=== PATIENT | male | born 2000 | race Caucasian/White ===

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

== ENCOUNTER 2024-11-22 10:05 | Day surgery (SDC) | payer OTHER, SELFPAY ==
[2024-11-22] VITALS (10 sets, daily range): BP systolic 109–118; BP diastolic 68–76; PULSE 62–87; RESP 16; TEMP 36.1–36.6; O2SAT 92–100; BMI 38.5
[2024-11-22] MEDS: Lactated Ringers 1,000 ML 15 ML IV (11:23)
--- NOTE | 2024-11-22 11:33 | PRE.ANES_ITS ---
ASA Classification* ASA Classification ASA Classification: 2 Assessment & Plan Anesthesia* Anesthesia Assessment Anesthesia Assessment: Discussed sedation and/or anesthesia options, risks, benefits, and alternatives with patient/parents/legal guardian/POA. Questions invited. The patient/parents/legal guardian/POA seems to understand and agrees to proceed with anesthesia plan. Reviewed the physical assessment, medical history, allergy history and patient home medications list prior to surgery/procedure/anesthetic and documented any changes. Performed airway and anesthesia risk assessments. 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 When Was Last Pacemaker Check QUESTION #4 FULL TEXT: You/Your Family Experience fever (hyperthermia) with Anesthesia Last Oral Intake Last Oral intake: Last Oral Intake NPO since 09:15 11/22/24 10:55 Meds taken in AM with sips of water? 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 Female No 10/31/24 15:22 HX of Motion Sickness No 10/31/24 15:22 HX of N/V After Surgery No 10/31/24 15:22 Non-Smoker Yes 10/31/24 15:22 Duration of Surgery greater Yes 10/31/24 15:22 than 60 minutes Number of Risk Factors 2 10/31/24 15:22 PONV Score Moderate Risk 10/31/24 15:22 Height & Weight Height & Weight: Anesthesia: Height & Weight Height 6 ft 11/22/24 10:55 Weight: 129 kg 11/22/24 10:55 Body Mass Index (BMI) 38.5 11/22/24 10:55 Respiratory Assessment Respiratory Assessment - corn detasseler machine operator: Respiratory Tract Infection Hx - corn detasseler machine operator Hx Respiratory Tract Infection No 10/31/24 15:22 STOP Sleep Apnea STOP Sleep Apnea - corn detasseler machine operator: STOP Sleep Apnea - corn detasseler machine operator Hx Hypertension No 10/31/24 15:22 Hx Sleep Apnea No 10/31/24 15:22 CPAP No 04/14/17 16:06 BIPAP Do you snore loudly (louder No 10/31/24 15:22 than talking or can be heard Do you often feel tired/ No 10/31/24 15:22 fatigued/ sleepy during daytime? Has anyone observed you stop No 10/31/24 15:22 breathing during sleep? STOP Results Negative 10/31/24 15:22 QUESTION #5 FULL TEXT : Do you snore loudly (louder than talking or can be heard through closed doors)? 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 Specify any problems Hx of Preganancy in last 3 N/A 10/31/24 15:22 Months Nurse Filling Out Transfusion DSCHRIBER 10/31/24 15:22 & Questions: Date: 10/31/24 10/31/24 15:22 Time: 15:23 10/31/24 15:22 Patient unable to answer at this time (ie. confused, unrespo /Reproduction History /Reproductive History - corn detasseler machine operator: /Reproductive Hx- corn detasseler machine operator Hx Now No 10/31/24 15:22 Gestational Age (in weeks): EDC: Hx Hx Para Hx Section SAB No 10/31/24 15:22 Active Medications Active Medications: Current Medications Generic Name Dose Route Start Last Admin Trade Name Freq PRN Reason Stop Dose Admin Cefazolin Sodium 3 gm/ Sodium 115 mls @ 200 mls/hr 11/22/24 11:45 Chloride IV 11/22/24 12:19 INTRAOP ONE Lactated Ringer's 1,000 mls @ 15 mls/hr 11/22/24 10:30 11/22/24 11:23 IV 15 mls/hr .Q48H LYNN Administration PFSH Medical History Thyroid disease Arthritis Back pain Non-smoker Home Medications ?Medication ?Instructions ?Recorded ?Last Taken ?Type levothyroxine 25 mcg capsule 25 mcg PO DAILY 10/31/24 11/22/24 History methocarbamol 500 mg tablet 500 mg PO Q8H PRN pain Unknown History naproxen 500 mg tablet 500 mg PO DAILY PRN pain Unknown History Allergy/AdvReac Type Severity Reaction Status Date / Time Acrylic Acid and Acrylates Allergy Rash Verified 11/22/24 10:54 (steri-strips (acrylate)) adhesive tape Allergy Rash Verified 11/22/24 10:54 Family History Mother Connective tissue disease Surgical History Hx of knee surgery S/P ACL reconstruction Social History Smoking Status: Never smoker alcohol intake: never Review of Systems (Anesthesia) ROS Narrative System reviewed and no additional complaints, except as documented.
[2024-11-22] MEDS: Midazolam 2 MG/2 ML Syringe IV (11:36)
[2024-11-22] MEDS: Cefazolin 1 GM/5 ML Vial 3 GM IV (12:06)
--- OUTSIDE RECORDS SUMMARY | 2024-11-22 12:16 | XMS RPT_ITS | CCD ---
Author Organization [facility] Inform ion Partnership [facility] Care Team Providers Care Hand Marker Name Role Phone Allyson Navarro Lux Unavailable Tito Knott Unavailable Bhavesh Becerra Attending Unavailable Hanna Owens Primary Care Unavailable Allergies Allergy Classification Reported Allergen(s) Allergy Type Date of Onset Reaction(s) Facility (2 sources) Adhesive bandage drug allergy 01-18-2017 [facility] Work Phone: (1 source) Adhesive Tape Drug allergy (disorder) 10-31-[address] [facility] Repository Medications Completed/Discontinued Medications Medication Drug Class(es) Dates Sig (Normalized) Sig (Original) doxycycline monohydrate 100 mg oral capsule (2 sources) Tetracycline-clas s Drug Start: 01-26-2017 DOXYCYCLINE MONOHYDRATE 100 MG CAPS 1 capsule twice a day DOXYCYCLINE MONOHYDRATE [id number] Abhijit PADILLA Problems Active Problems Problem Classification Problem Date Documented Da te Episodic/Chronic Joint disorders and dislocations; trauma-related (2 sources) Derangement of knee; Translations: [Other internal derangements of left knee] Onset: 01-12-2017 01-13-2017 Chronic Unclassified (2 sources) Aftercare ; Translations: [Encounter for other orthopedic aftercare] Onset: 02-14-2017 02-14-2017 Past or Other Problems Problem Classification Problem Date Documented Da te Episodic/Chronic Other non-traumatic joint disorders (2 sources) Knee pain; Translations: [Pain in left knee] Onset: 12-27-2016 12-27-2016 Episodic Skin and subcutaneous tissue infections (2 sources) Impetigo; Translations: [Impetigo, unspecified] Onset: 01-26-2017 01-26-2017 Episodic Sprains and strains (8 sources) Sprain of medial collateral ligament of left knee, subsequent encounter; Translations: [Sprain of anterior cruciate ligament of left knee, subsequent encounter] Onset: 12-27-2016 01-13-2017 Episodic Results Test Name Value Interpretation Reference Range Facility [facility] 07-12-2017 [facility], [address] [address]Xiipm: [phone]: [phone] 2017RE: [id number] [place] [id number]/08/1999Dear Parent/Guardian of Payam,We have tried to contact you in regards to your child'Maicol for Routine PhysicalOur efforts to reach you have been unsuccessful. Please call [phone] to coordinate your child's plan of care. Thank you and we lookforward to talking with you.Sincerely,[facility] Office Visiton 02-14-2017 Documentation of current medications (procedure) Done Invalid Interpretation Code [facility] Work Phone: Tobacco smoking status NHIS Never Invalid Interpretation Code [facility] Work Phone: Tobacco use [facility] Never smoker Invalid Interpretation Code [facility] Work Phone: Office Visit: UC: impetigoon 01-26-2017 Fall risk assessment No Invalid Interpretation Code [facility] Work Phone: Vital Signs Date Time Vital Sign Value Performing Clinician Facility 01-26-2017 15:55-0400 BMI (Body Mass Index) 28.21 kg/m2 [facility] Work Phone: 01-26-2017 15:55-0400 Body Temperature 99.2 [degF] [facility] Work Phone: 01-26-2017 15:55-0400 BP Diastolic 72 mm[Hg] [facility] Work Phone: 01-26-2017 15:55-0400 BP Systolic 112 mm[Hg] Tito Wells [facility] Work Phone: 01-26-2017 15:55-0400 Height 182.88 cm Tito Wells [facility] Work Phone: 01-26-2017 15:55-0400 Pulse (Heart Rate) 76 /min Tito Knott [facility] Work Phone: 01-26-2017 15:55-0400 Respiratory Rate 20 /min Tito Knott [facility] Priscilla Carmen [facility] Work Phone: 01-26-2017 15:55-0400 Weight 94.35 kg Tito Wells [facility] Work Phone: Encounters Encounter Date Encounter Type Care Provider Facility Start: 11-22-2024 ambulatory Bhavesh Lu ty:[facility] Start: 11-12-2024 Encounter for other preprocedural examination [facility] Plan of Treatment Date Care Activity Detail Author Start: 02-21-2017 End: 02-21-2017 Appointment Appointment [facility] Work Phone: Start: 02-16-2017 End: 02-16-2017 Physical Therapy General Physical Therapy [facility], [address] [place] [address], [id number] [facility] Work Phone: Start: 12-29-2016 End: 12-29-2016 Physical Therapy General Physical Therapy [facility], [address] [place] [address], [id number] [facility] Work Phone: Start: 12-27-2016 End: 12-27-2016 Mri any jt lower extrem w/o contrast matrl MRI Joint Lower Extremity [facility] Work Phone: Start: 12-27-2016 End: 12-27-2016 Radiologic exam knee complete 4/more views X-Ray, Knee [facility] Work Phone: Payers Date Payer Category Payer Self-pay 2024 Unknown [id number] 27 Unknown [id number] Summary Purpose Family History No Family History Records FoundNo Family History Records Found Advance Directives No Advanced Directives Records FoundNo Advanced Directives Records Found Additional Source Comments (unrecognized sect ion and content) No Status Records FoundNo Status Records Found INFORMATION SOURCE (unrecogn ized section and content) DATE CREATED AUTHOR 10/22/2017 [facility] DATE CREATED AUTHOR AUTHOR'S DIVYA SAM 11/13/2024 [facility] FOR RECORDS PERTAINING TO PATIENTS WHO ARE OR HAVE BEEN ENROLLED IN A CHEMICAL DEPENDENCY/SUBSTANCEABUSE PROGRAM, SOME INFORMATION MAY BE OMITTED. This clinical summary was aggregated from multiple sources. Caution should be exercised in using it in the provision of clinical care. This summary normalizes information from multiple sources, and as a consequence, information in this document may materially change the coding, format and clinical context of patient data. In addition, data may be omitted in some cases. CLINICAL DECISIONS SHOULD BE BASED ON THE PRIMARY CLINICAL RECORDS. [employer] provides no warranty or guarantee of the accuracy or completeness of information in this document.
[2024-11-22] MEDS: Epinephrine (1 mg/ml) 1 MG/ML VIAL (12:29)
[2024-11-22] MEDS: fentaNYL 100 MCG/2 ML Ampul 200 MCG IV (14:29)
[2024-11-22] MEDS: dexMEDEtomidine 200 MCG/2 ML ML 40 MCG IV (15:01)
--- NOTE | 2024-11-22 15:28 | PCM.POST.ANE ---
Anesthesia: Postop Eval I Current Vital Signs Temperature: 97 F Pulse Rate: 82 Blood Pressure: 118/71 Respiratory Rate: 16 Pulse Ox: 97 Assessment Airway patent: Yes Spontaneous unlabored respirations: Yes nausea: No Vomiting: No Anesthesia Complication: No Fluid Hydration Crystalloid volume administer (ml): 1,400 Total IV fluid infused: 1,400 Progress Note Anesthesia document: Postop Eval 1 completed: Yes
--- NOTE | 2024-11-22 16:55 | POSTOPAN2_ITS ---
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.TNES Spontaneous unlabored Yes 11/22/24 15:28 NURSERY SCHOOL ATTENDANT.TNES respirations Mental status nausea No 11/22/24 15:28 NURSERY SCHOOL ATTENDANT.TNES Vomiting No 11/22/24 15:28 NURSERY SCHOOL ATTENDANT.TNES Anesthesia Postop Eval I: Fluid Summary Crystalloid volume administer 1,400 11/22/24 15:28 NURSERY SCHOOL ATTENDANT.TNES (ml) Colloids volume administered ( ml) Blood Product volume administered (ml) Total IV fluid infused 1,400 11/22/24 15:28 NURSERY SCHOOL ATTENDANT.TNES Anesthesia Postop Eval I: Summary Notes Anesthesia Complication No 11/22/24 15:28 NURSERY SCHOOL ATTENDANT.TNES Anesthesia Complication Comment: Post-operative progress note Anesthesia: Postop Eval II Evaluation Mental status: Awake Pain Level: 0 nausea: No Vomiting: No
--- NOTE | 2024-11-22 16:55 | PCM.POSTANE2 ---
Anesthesia Postop Eval I Sum Postop Eval Completion status Anesthesia document: Postop Eval 1 completed: Yes Anesthesia Postop Eval I Summary Anesthesia Postop Eval I Summary: Anesthesia Postop Eval I: Assessment Summary Airway patent Yes 11/22/24 15:28 [email or web address] Spontaneous unlabored Yes 11/22/24 15:28 [email or web address] respirations Mental status nausea No 11/22/24 15:28 [email or web address] Vomiting No 11/22/24 15:28 [email or web address] Anesthesia Postop Eval I: Fluid Summary Crystalloid volume administer 1,400 11/22/24 15:28 [email or web address] (ml) Colloids volume administered ( ml) Blood Product volume administered (ml) Total IV fluid infused 1,400 11/22/24 15:28 [email or web address] Anesthesia Postop Eval I: Summary Notes Anesthesia Complication No 11/22/24 15:28 [email or web address] Anesthesia Complication Comment: Post-operative progress note Anesthesia: Postop Eval II Evaluation Mental status: Awake Pain Level: 0 nausea: No Vomiting: No
--- NOTE | 2024-11-22 18:37 | OP.PCM_ITS ---
Operative Report (Standard) Operative Information Date of Procedure: 11/22/24 Pre-Operative Diagnosis: Left knee recurrent anterior cruciate ligament rupture Post-Operative Diagnosis: Left knee recurrent anterior cruciate ligament rupture Surgery/Procedure Performed: 1. Left knee arthroscopic anterior cruciate ligament revision reconstruction utilizing quadriceps tendon autograft with removal of hardware 2. Left knee lateral extra-articular tenodesis medical claims assistant: Yes Travel Accommodation Inspector: Denisse Cristina Tasks completed by first line production supervisor: Opening & closing, Harvesting grafts (And graft prep), Implanting device and Retracting Additional professional nursing assistant?: No Type of Anesthesia: General/Regional RN Documented Start/Stop Times: Operation Date: 11/22/24 11:45 Case Time Into Pre-Op 11/22/24 10:27 Anesthesia Start 11/22/24 12:06 Into Room 11/22/24 12:06 Procedure Start 11/22/24 12:29 Procedure End 11/22/24 15:04 Anesthesia End 11/22/24 15:21 Out of Room 11/22/24 15:21 Into Recovery 11/22/24 15:22 Out of Recovery 11/22/24 16:19 Into Phase II Recovery 11/22/24 16:20 Out of Phase II 11/22/24 17:08 Procedure Start Time: 12:29 Procedure Stop Time: 15:04 Select all DRAINS/GRAFTS/IMPLANTS that apply: Implanted device Implanted device details: Arthrex fiber tack double knotless suture anchor Arthrex revision ABS button, tight rope 2 fixation with internal brace Estimated Blood Loss: 20 cc Specimen collected: No Description of surgery: Patient was identified in preoperative holding area by name, medical record number, and date of . The operative extremity was marked. All questions were answered to the patient's satisfaction. Peripheral nerve block was then administered by anesthesia staff prior to the procedure. At time of his procedure, patient was brought to the operative suite and positioned supine on a standard operating table. General anesthesia was induced and LMA placed. All bony prominences were well-padded. I performed an examination under anesthesia demonstrated a grade 3 Jhony with high-grade pivot shift. Recurvatum was noted as well. Well-padded pneumatic tourniquet was applied to the left upper thigh. Well-leg bowling was placed on the patient's right thigh. Circumferential leg bowling was placed around the patient's left thigh. The foot of bed was dropped 90 degrees. We prepped and draped the left lower extremity in a normal, sterile orthopedic fashion. A timeout was called confirming the side, site, and operation to be performed. No concerns were voiced and we elec oumou to proceed with surgery. 2 g Ancef administered IV prior to incision by anesthesia staff. Left lower extremity was exsanguinated with Esmarch bandage. Tourniquet was inflated to 250 mmHg remained elevated for 120 minutes. Esmarch was removed. I first of my attention today dissection a lateral extra-articular tenodesis. Longitudinal incision was made overlying the lateral epicondyle approximately 5 cm in length. Blunt dissection was carried down the level of the IT band. IT band was freed from overlying fat. I identified our landmarks with the fibular head and lateral epicondyle. The posterior border of the IT band was identified. I then sharply elevated a slip of IT band approximately 50 mm x 10 mm leaving the distal insertion site at Kerri's tubercle intact. The flap was freed from underlying bursa. Bursa was bluntly dissected through to identify the fibular collateral ligament. I whipstitched the end of the flap with a fiber loop suture and the free needle was then removed from the surgical field. Flap was tacked into the lateral wound while we carried through the ACL reconstruction portion of the case to later return to complete our LET. I then moved to harvest the quadriceps tendon graft. Longitudinal incision was made from the proximal pole of the patella 5 cm proximally. Flaps were developed down to the level of the peritenon which was then split in line with the incision. Quadriceps tendon was identified and appeared pristine. I then used a 10 mm parallel blade to begin harvesting our graft. A 70 mm graft was harvested by sharply elevating off the patella and then freeing surrounding fibrous adhesions. Whipstitch was performed distally to secure the graft and then the graft was amputated with a cigar cutting harvester. The graft was p laced in the back table and my professional nursing assistant, Denisse Cristina PA-C, prepared the graft while I proceeded with hardware removal and ACL reconstruction. The peritenon and quadriceps void was then closed watertight with interrupted [id number] 0 Vicryl suture. I then turned my attention to the arthroscopic portion of the case. Standard anterolateral portal was established with 11 blade scalpel. Blunt tipped trocar was used into the knee and cannula used to fill the knee with normal saline with epinephrine. Examination of the patellofemoral joint demonstrated a pristine cartilage. Medial lateral compartments were unremarkable. Intercondylar notch demonstrated complete tear of the ACL graft. Cautery was used to identify the femoral screw. Tunnel appeared to be appropriately placed. ACL remnant was resected. A hex head screwdriver was then placed to the medial portal and with hyperflexion of the knee I was able to engage to the screw and carefully remove it from the knee. I then used the flip cutter guide through the lateral portal. Trajectory appeared appropriate I utilized the prior tunnel. Graft preparation yielded a 10 mm graft. Through our lateral incision the flip cutter was introduced and drilled into the intercondylar notch. Flip cutter was deployed to 10 mm and a 30 mm socket was made. Flip cutter was then brought back to 3.5 mm and removed. Passing suture was placed and retrieved out the lateral portal and tagged. I then opened the distal portion of the prior BTB incision to remove our tibial screw. Tibial screw was easily identified after full-thickness skin flaps were developed approximately 4 cm in length. Screw was removed without difficulty. Tibial tunnel trajectory also appeared reasonable and elected to use a drill pin after planning my trajectory for a barrel turner. This was reamed to a 10 mm tibial tunnel in standard fashion. The passing suture was then retrieved through the tibial tunnel after clearing any remaining debris. The graft which was pretty tensioned at this point was brought to the surgical field and passed through the tibial tunnel into the femoral tunnel. The button was visualized and noted to flip. Sequential tightening seated the graft nicely into the femoral tunnel. Maximal tension was applied to the tibial side of the graft and the knee was cycled 25 times to prevent creep. An ABS button was placed through the tibial tight rope and tensioned at approximately 20 degrees of flexion with a posterior drawer applied. Sutures were tied. The internal brace was then tensioned and tied at 0 degrees. ACL was stable to probing. No significant stenosis was noted. I then turned my attention back to the LET. A tenodesis site proximal and anterior to the lateral epicondyle was identified. A fiber tack suture anchor was then placed with excellent pullout strength. The slip of IT band was then passed beneath the fibular collateral ligament and then brought to our tenodesis site. Slack was removed from the graft and tensioned at 60 degrees of flexion. The suture anchor was utilized as a suture staple with 2 premade loops and the anchor used to compress the IT band to the lateral femoral cortex. The knee was brought through range of motion and appeared stable. Jhony was stable. There was no remaining recurvatum noted. Wounds were copiously irrigated. Sutures were cut. Tourniquet was deflated. Hemostasis was excellent. Deeper fascial layers were closed in interrupted [id number] fashion with 0 Vicryl suture. Dermis was reapproximated buried 3-0 Vicryl suture. Larger incisions were closed with aaron. Portal sites were closed in interrupted geefup-ir-bjuii fashion with 3-0 nylon suture. Bulky sterile compression dressing was applied. Patient was awakened from anesthesia and safely extubated in the operative suite. He was placed in a T ROM hinged knee brace locked in full extension set from 0 to 90 degrees. He was transferred to his gurney and subsequent to PACU in stable condition. Need for skilled professional nursing assistant: Denisse Cristina PA-C was critical to the outcome of the case. During the course of the procedure he played a vital role. Mrs. Cristina was pivotal and proceeding with surgical procedure during time of graft preparation allowing for less time under anesthesia, less tourniquet time, ultimately reducing risk for the patient. She also played a vital role in closure and brace application. Postoperative plan: Weightbearing as tolerated with hinged knee brace locked in full extension. Range of motion as tolerated. Aspirin 81 mg twice daily for DVT prophylaxis starting postoperative day #1. Prescription for oxycodone provided. Scheduled Tylenol and ibuprofen encouraged. Ice and elevation. Physical therapy to start 11/25/2024 as previously scheduled. Follow-up in 2 weeks for suture/staple removal. Surgical Findings: Complete ACL rupture. Stable Jhony and periphery, brought on following ACL reconstruction and lateral extra-articular tenodesis Complications Complications: No Admit VTE Documentation VTE Present on Admission: No VTE Mechan Device Prophylaxis: SCD's and Thigh High OUMOU Hose VTE Pharm Prophylaxis ordered?: Yes
== END 2024-11-22 17:08 | disposition home or self-care (01) ==
LOC: SDC 10:08 → AC 10:09
PROVIDERS: Anesthesiology; PCP Registered Nurse General Practice; Referring Provider Student in an Organized Health Care Education/Training Program; Visit Provider Student in an Organized Health Care Education/Training Program
PROC: (CPT 27427; principal; 2024-11-22 11:25)
DX: S83.512A Sprain of anterior cruciate ligament of left knee, initial encounter (principal); X58.XXXA Exposure to other specified factors, initial encounter; Y99.1 Military activity; Z79.890 Hormone replacement therapy; Z79.899 Other long term (current) drug therapy
CPT/HCPCS: 27427; 20680; 01400; 64447; 84443; C1713; J2405